=== PATIENT | female | born 1990 | race Caucasian/White ===

== ENCOUNTER 2017-09-25 01:30 | Emergency (ER) | payer MEDICAID, OTHER ==
[2017-09-25 01:49] VITALS: BMI 29.2
[2017-09-25 01:52] VITALS: BP 121/72; PULSE 88; RESP 18; TEMP 98.3; O2SAT 100
--- NOTE | 2017-09-25 01:58 | ED PDOC ---
HPI: General Adult Time Seen by Provider: 09/25/17 01:52 Chief Complaint (Nursing): Medical Clearance Chief Complaint (Provider): eval History Per: Patient Additional Complaint(s): 27 year old female presents for evaluation via EMS. Patient was arrested tonight and while at precinct she was complaining of asthma attack so police called EMS to bring her here. Patient was issued summons at police precinct and is no longer in police custody. Patient states shortness of breath is now resolved now that she is no longer in a nursing home cell. Patient does admit to drinking 2 glasses of sangria earlier this evening. Past Medical History Reviewed: Historical Data, Nursing Documentation, Vital Signs Vital Signs: Last Vital Signs Temp 98.3 F 09/25/17 01:49 Pulse 88 09/25/17 01:49 Resp 18 09/25/17 01:49 BP 121/72 09/25/17 01:49 Pulse Ox 100 09/25/17 01:49 - Medical History PMH: Asthma, Migraine - Family History Family History: States: No Known Family Hx - Living Arrangements Living Arrangements: With Family - Social History Current smoker - smoking cessation education provided: No Alcohol: Social Drugs: Denies - Home Medications Home Medications: Ambulatory Orders Medication Instructions Recorded Cyclobenzaprine [Flexeril] 5 mg PO TID #21 tab 06/12/16 Naproxen [Naprosyn] 500 mg PO BID #20 tab 06/12/16 - Allergies Allergies/Adverse Reactions: Allergies Allergy/AdvReac Type Severity Reaction Status Date / Time No Known Allergies Allergy Verified 06/12/16 02:19 Review of Systems ROS Statement: Except As Marked, All Systems Reviewed And Found Negative Constitutional: Negative for: Fever Cardiovascular: Negative for: Chest Pain Respiratory: Negative for: Cough Gastrointestinal: Negative for: Nausea, Vomiting Psych: Negative for: Suicidal ideation Physical Exam - Reviewed Nursing Documentation Reviewed: Yes Vital Signs Reviewed: Yes - Physical Exam Appears: Positive for: Well, Non-toxic, No Acute Distress Skin: Positive for: Normal Color. Negative for: Rash Eye Exam: Positive for: Normal appearance Cardiovascular/Chest: Positive for: Regular Rate, Rhythm Respiratory: Positive for: Normal Breath Sounds Neurologic/Psych: Positive for: Alert, Oriented - ECG O2 Sat by Pulse Oximetry: 100 Pulse Ox Interpretation: Normal Medical Decision Making Medical Decision Making: Patient arrives in stable condition. She offers no acute complaints. Patient is stable for discharge. Disposition - Clinical Impression Clinical Impression: Normal exam - Patient ED Disposition Is Patient to be Admitted: No Counseled Patient/Family Regarding: Need For Followup - Disposition Referrals: [facility] [Outside] Disposition: Routine/Home Disposition Time: 02:05 Condition: STABLE Additional Instructions: Follow up as needed with primary care doctor. Instructions: Normal Exam (ED)
== END 2017-09-25 02:30 | disposition home or self-care (01) ==
LOC: H.ER 01:30
DX: J45.909 Unspecified asthma, uncomplicated (principal)